=== PATIENT | female | born 1970 ===

== ENCOUNTER 2021-03-29 11:34 | Inpatient (IN) | payer BC ==
[~2021-03-29] VITALS: Ht 172.7 cm; Wt 83.2 kg
[2021-03-29 12:50] LABS: GRAN # 4.9 (1.4-6.5); GRAN % 81.1 % (42.2-75.2); HEMATOCRIT 40.9 % (37.0-47.0); HEMOGLOBIN 13.6 g/dl (12.5-16.0); LYMPH # 0.6 (1.2-3.4); LYMPH % 9.7 % (20.0-51.0); MEAN CELL VOLUME 89 fl (80.0-100.0); MEAN CORPUSCULAR HEMOGLOBIN 30 pg (27.0-31.0); MEAN CORPUSCULAR HGB CONC 33 g/dl (33.0-37.0); MEAN PLATELET VOLUME 12.8 fl (7.4-10.4); MONO # 0.5 (0.1-0.6); MONO % 8.9 % (1.7-9.3); PLATELET COUNT 154 K/mm3 (130-400); RED BLOOD COUNT 4.61 M/mm3 (4.10-5.30); REDCELL DISTRIBUTION WIDTH-CV 13.3 % (11.5-14.5)
[2021-03-29 12:57] LABS: ALBUMIN 4.3 gm/dL (3.5-5.0); BILIRUBIN,TOTAL 0.5 mg/dL (0.0-1.0); CALCIUM 8.6 mg/dL (8.4-10.2); CREATININE, serum 0.43 (0.52-1.25); POTASSIUM 3.4 mmol/L (3.4-5.0); TOTAL PROTEIN 8.2 gm/dL (6.4-8.2)
[2021-03-29 18:38] VITALS: BP 137/64; PULSE 78; TEMP 99.3
[2021-03-29] MEDS ORDERED: ALBUTEROL0.83 MG/ML IH (18:52)
[2021-03-29] MEDS ORDERED: [UNRECOGNIZED DRUG - OTHER] (18:53)
[2021-03-29] MEDS ORDERED: BRIO IH (18:55)
[2021-03-29 19:59] LABS: COLLECTION METHOD CLEAN CATCH
--- NOTE | 2021-03-29 20:00 | NUR ---
Assessment complete. Patient currently on 1.5 liters 02 and satting 95%. She has no complaints of pain. Temp is 99.4. No SOA is present. No edema is noted. Comfort measures are provided and call light in reach. Will continue to closely monitor.
[2021-03-29 20:08] LABS: MUCOUS Present /lpf; PH 5 (5-8); URINE APPEARANCE Cloudy; URINE BACTERIA Rare /hpf; URINE BILIRUBIN Negative (NEGATIVE); URINE BLOOD Negative (NEGATIVE); URINE COLOR Amber; URINE GLUCOSE Negative (NEGATIVE); URINE KETONE Negative (NEGATIVE); URINE LEUKOCYTE ESTERASE 1+ (NEGATIVE); URINE NITRATE Negative (NEGATIVE); URINE PROTEIN(semi-quant) 2+ (NEGATIVE); URINE UROBILINOGEN Negative (NEGATIVE)
[2021-03-29 20:20] LABS: INR 1.1 (0.8-3.0)
[2021-03-29 21:22] VITALS: BP 143/65; PULSE 94; TEMP 99.6
[2021-03-30 01:24] VITALS: BP 145/66; PULSE 89; TEMP 100.3
[2021-03-30 05:39] VITALS: TEMP 99.7
[2021-03-30 06:56] LABS: CALCIUM 8.5 mg/dL (8.4-10.2); CREATININE, serum 0.43 (0.52-1.25); POTASSIUM 3.2 mmol/L (3.4-5.0)
[2021-03-30 06:58] LABS: GRAN % 75.2 % (42.2-75.2); HEMATOCRIT 39.3 % (37.0-47.0); HEMOGLOBIN 12.7 g/dl (12.5-16.0); LYMPH # 0.8 (1.2-3.4); LYMPH % 15.3 % (20.0-51.0); MEAN CELL VOLUME 92 fl (80.0-100.0); MEAN CORPUSCULAR HEMOGLOBIN 30 pg (27.0-31.0); MEAN CORPUSCULAR HGB CONC 32 g/dl (33.0-37.0); MONO # 0.5 (0.1-0.6); MONO % 8.9 % (1.7-9.3); PLATELET COUNT 155 K/mm3 (130-400); RED BLOOD COUNT 4.29 M/mm3 (4.10-5.30); REDCELL DISTRIBUTION WIDTH-CV 13.4 % (11.5-14.5)
[2021-03-30 09:08] VITALS: BP 131/58; PULSE 78; TEMP 99
--- NOTE | 2021-03-30 09:13 | NUR ---
The patient is COVID positive. ANT contacted the patient's room phone to discuss discharge plan. The patient lives in [place] with her , Caesar (ph#[phone]), daughter, son-in-law, and son. She works at [employer]. She reports independence with ADLs and does not have any DME. The patient does not have a PCP here. She states that she moved here around 11 months ago, due to her daughter getting sick and having cancer. ANT informed the patient that ANT would place a list of providers in the [place] area. The patient verbalized understanding. ANT placed the list on the patient's chart. The patient receives her medications from [facility]. The patient does not have advanced directives. The patient plans to return home with her family upon discharge. She is currently on 1 liter of oxygen. SW to continue to monitor. *Discharge plan: home with family*
[2021-03-30 14:08] VITALS: BP 136/61; PULSE 79; TEMP 99.1
[2021-03-30 17:00] VITALS: BP 132/62; PULSE 83; TEMP 98.4
--- NOTE | 2021-03-30 18:31 | NUR ---
PT A/OX4, 02 1L NC, COUGH MEDICATION ADMINISTERED ORDERED, PT APPEARS TO BE FORMING A PRODUCTIVE COUGH, PT DENIES PAIN,N,V,D. PT REMAINS AFEBRILE. ANTBIOTICS AND ANTIVIRAL ADMINISTERED ORDERED. PT EXPRESSES NO ADDITIONAL NEEDS AT THIS TIME. CALL LIGHT WITHIN REACH.
--- NOTE | 2021-03-30 20:00 | NUR ---
Assessment complete. Patient is alert and oriented with no complaints of pain. She is afebrile and wearins 1 liter 02 with no signs of increased work of breathing. She is independent in the room. No edema is noted. Lung sounds are clear with diminished bases; they have improved since last night. HR is normal and regular. No new concerns, will continue to monitor.
[2021-03-30 22:08] VITALS: BP 136/62; PULSE 79; TEMP 99
[2021-03-31] VITALS (7 sets, daily range): BP systolic 131–138; BP diastolic 54–66; PULSE 71–91; TEMP 98.2–101
[2021-03-31 07:08] LABS: BASO % 0.1 % (0.0-2.0); GRAN # 5.9 (1.4-6.5); GRAN % 73.9 % (42.2-75.2); HEMATOCRIT 38.1 % (37.0-47.0); HEMOGLOBIN 12.4 g/dl (12.5-16.0); LYMPH # 1.3 (1.2-3.4); LYMPH % 15.5 % (20.0-51.0); MEAN CELL VOLUME 91 fl (80.0-100.0); MEAN CORPUSCULAR HEMOGLOBIN 30 pg (27.0-31.0); MEAN CORPUSCULAR HGB CONC 33 g/dl (33.0-37.0); MEAN PLATELET VOLUME 12.4 fl (7.4-10.4); MONO # 0.8 (0.1-0.6); PLATELET COUNT 161 K/mm3 (130-400); RED BLOOD COUNT 4.21 M/mm3 (4.10-5.30); REDCELL DISTRIBUTION WIDTH-CV 13.3 % (11.5-14.5)
[2021-03-31 07:14] LABS: CALCIUM 8.5 mg/dL (8.4-10.2); CREATININE, serum 0.45 (0.52-1.25); POTASSIUM 3.4 mmol/L (3.4-5.0)
--- NOTE | 2021-03-31 15:08 | NUR ---
Patient had experienced a fever last night of 101.0. This RN retook the patient's temperature and it was 100.5. The patient was given ordered ibuprofen. Patient's most recent temperature was 98.4. Patient c/o stomach burning that did not go away with eating. This RN gave the patient PRN maalox, as well as some tylenol for other generalized pain. The patient has not had any other complaints at this time.
--- NOTE | 2021-03-31 20:00 | NUR ---
Patient laying in bed talking on the phone, alert and oriented x 3. Assesment complete. Patient denies pain at this time. IV to left forarm without complications. Patient on 2L of oxygen via NC. Denies further needs at this time.
--- NOTE | 2021-03-31 23:23 | NUR ---
Contacted Yue ANDERSON, patient called out to nurses station, states she was sleeping when suddenly she started feeling SOA. Upon entering room patient is sitting up on edge of bed, hyperventalating. Oxygen saturations at 83% on 1L of oxygen, increased to 5l via NC, patient sats at 90%. Patient placed on 10L via oxymask, oxygen sats increased to 95-96%. Crackles noted to bilateral lobes, diminished during shift assessment. Patient complaining of pain during inspiration, fequent coughing with deep inspiration. RT in room for breathing treatment, EKG and ABG. Patient remains sitting on edge of bed, states she feels dizzy. States this also happened to her last night.
[2021-03-31 23:44] LABS: ARTERIAL BLD GAS O2 SATURATION 95.4 % (92-100); ARTERIAL BLD GAS TCO2 CT 35.3; ARTERIAL BLOOD GAS BASE EXCESS 8.6 (-2-2); ARTERIAL BLOOD GAS HCO3 33.8 meq/L (22-26); ARTERIAL BLOOD GAS PCO2 48.9 mmHg (35-45); ARTERIAL BLOOD GAS pH 7.46 (7.35-7.45)
[2021-04-01] VITALS (7 sets, daily range): BP systolic 117–138; BP diastolic 53–74; PULSE 68–79; TEMP 97.9–99.2
--- NOTE | 2021-04-01 | NUR ---
Radiology in for chest xray, patient currently on 8L o2 via oxymask, states she feels better but continues to feel light headed. Tylenol provided for back pain. Denies further needs at this time.
--- NOTE | 2021-04-01 02:28 | NUR ---
Patient laying in bed, states she is feeling a little bit better right now. Denies further needs at this time.
--- NOTE | 2021-04-01 05:47 | NUR ---
Patient sitting up on edge of bed, states she is feeling better but is noticing she is experiencing increased SOA. Currently on 5L of oxygen via NC. Denies pain at this time. Denies further needs at this time. Will report off to day shift.
--- NOTE | 2021-04-01 19:12 | NUR ---
Patient has had complaints of generalized aches. Patient also c/o cough around 1800. Robitussin and tylenol was given. Patient was on 4L of oxygen via Oxymask and was tolerating it well, will a O2 sat of 92%. Patient showered today and did well.
--- NOTE | 2021-04-01 20:00 | NUR ---
Patient in bed resting. Alert and oriented x3. Assessment complete. Denies pain at this time. Patient states she is feeling a lot better this afternoon but is tired. Educated patient on BIpap use at night, verbalized understanding. Patient states she is concerned about her son, who is in ICU at the time. Denies further needs at this time.
--- NOTE | 2021-04-01 22:14 | NUR ---
Yue ANDERSON and SUPPLIER DEVELOPMENT MANAGER in to update patient on son.
--- NOTE | 2021-04-01 23:43 | NUR ---
Contacted Yue ANDERSON for ativan, patient anxious.
[2021-04-02 03:33] VITALS: BP 145/59; PULSE 78; TEMP 98.1
--- NOTE | 2021-04-02 04:10 | NUR ---
Patient called out, states she feels short of breath. O2 at 90% on NC at 4L. Changed patient to oxymask at 5L, O2 saturations at 93% with oxymask. Robitussin given for cough. Denies further needs at this time.
[2021-04-02 05:14] LABS: ARTERIAL BLD GAS TCO2 CT 34.9; ARTERIAL BLOOD GAS BASE EXCESS 8.8 (-2-2); ARTERIAL BLOOD GAS HCO3 33.5 meq/L (22-26); ARTERIAL BLOOD GAS PCO2 46.1 mmHg (35-45); ARTERIAL BLOOD GAS PO2 79.1 mmHg (80-100); ARTERIAL BLOOD GAS pH 7.48 (7.35-7.45)
--- NOTE | 2021-04-02 05:52 | NUR ---
Patient doing well throughout the night. Minimal needs. Currently on 5L o2 via oxymask. Denies pain at this time. Will report off to day shift.
[2021-04-02 08:00] VITALS: BP 114/53; PULSE 88; TEMP 97.8
--- NOTE | 2021-04-02 08:00 | NUR ---
Patient sitting up in bed, RT in the room. Patient emotional in the room and crying. Nursing staff and RT in the room to console the patient. VSS 5L Oxymask, no reported SOB. IV CDI. Denies pain and discomfort. Droplet/contact precautions in place. No further needs expressed from the patient. Call light within reach
[2021-04-02 10:12] LABS: BASO % 0.1 % (0.0-2.0); GRAN # 8.6 (1.4-6.5); GRAN % 78.8 % (42.2-75.2); HEMATOCRIT 40.3 % (37.0-47.0); LYMPH # 1.4 (1.2-3.4); LYMPH % 12.6 % (20.0-51.0); MEAN CELL VOLUME 90 fl (80.0-100.0); MEAN CORPUSCULAR HEMOGLOBIN 29 pg (27.0-31.0); MEAN CORPUSCULAR HGB CONC 32 g/dl (33.0-37.0); MEAN PLATELET VOLUME 11.5 fl (7.4-10.4); MONO # 0.9 (0.1-0.6); PLATELET COUNT 216 K/mm3 (130-400); RED BLOOD COUNT 4.46 M/mm3 (4.10-5.30); REDCELL DISTRIBUTION WIDTH-CV 13.3 % (11.5-14.5)
[2021-04-02 10:26] LABS: ALBUMIN 3.7 gm/dL (3.5-5.0); BILIRUBIN,TOTAL 0.5 mg/dL (0.0-1.0); C-REACTIVE PROTEIN 3.4 mg/dL (0.0-0.9); CALCIUM 8.5 mg/dL (8.4-10.2); CREATININE, serum 0.4 (0.52-1.25); MAGNESIUM 2.4 mg/dL (1.6-2.3); POTASSIUM 3.2 mmol/L (3.4-5.0); TOTAL PROTEIN 7.3 gm/dL (6.4-8.2)
[2021-04-02 11:26] VITALS: BP 133/57; PULSE 84; TEMP 98.6
[2021-04-02 16:00] VITALS: BP 135/71; PULSE 80; TEMP 98.9
--- NOTE | 2021-04-02 17:43 | NUR ---
Patient on 5L oxymask, reported dyspnea on exertion. Patient has been emotional throughout the day r/t son being in the ICU. VSS. IV leaking, assess for new IV site. Denies pain and discomfort. Droplet/contact precautions in place. No further needs expressed from the patient. Call light within reach
[2021-04-02 20:22] VITALS: BP 125/56; PULSE 79; TEMP 98.1
[2021-04-03] VITALS (7 sets, daily range): BP systolic 115–135; BP diastolic 53–71; PULSE 66–75; TEMP 24
--- NOTE | 2021-04-03 06:15 | NUR ---
PATIENT ALERT AND ORIENTEDX4. ON 5 L OXYMASK, INCREASE COUGH ROBITUSSIN X 1 GIVEN. VSS, AFEBRILE. INDEPENDENT IN ROOM. TELEMETRY WAS DISCONTINUED. DENIES PAIN. K 3.2 REPLACED WITH 60 MEQ PO. WILL CONTINUE.
--- NOTE | 2021-04-03 11:00 | NUR ---
Scheduled medications given. Shift assessment preformed. Patient is currently requiring 4L of O2 via oxymask. Denies any N/V/D. Patient afebrile. Patient denies any pain. Denies any further needs at this time. Will continue to monitor. Call light in reach.
--- NOTE | 2021-04-03 11:42 | NUR ---
Dr. Quinones updated on patient's status.
--- NOTE | 2021-04-03 14:02 | NUR ---
PRN TYLENOL GIVEN FOR A HEADACHE RATED A 5/10.
--- NOTE | 2021-04-03 17:41 | NUR ---
Patient has had an ok day. Currently requiring 4L of O2 via oxy mask, still experiencing SOA upon exertion. Scheduled medications given. Patient states that she has some aching in her legs. No reddness or edema noted. VSS. Bed bath given. Patient denies any further needs at this time. Will continue to monitor. Call light in reach.
--- NOTE | 2021-04-03 23:25 | NUR ---
Shift assessment completed. Patient alert and oriented. Patient denies any pain or discomfort. Denies SOB or dyspnea while at rest. Patient currently on 4L oxygen via oxymask. VS stable. No acute respiratory distress noted. Denies N/V or diarrhea. Patient reports feeling very anxious. PRN Ativan given for anxiety. All scheduled meds given per NOV. Call light within reach. Will continue to monitor.
[2021-04-04 06:25] VITALS: BP 129/67; PULSE 73; TEMP 98.3
[2021-04-04 06:42] LABS: HEMATOCRIT 38.7 % (37.0-47.0); HEMOGLOBIN 12.6 g/dl (12.5-16.0); MEAN CELL VOLUME 91 fl (80.0-100.0); MEAN CORPUSCULAR HEMOGLOBIN 30 pg (27.0-31.0); MEAN CORPUSCULAR HGB CONC 33 g/dl (33.0-37.0); MEAN PLATELET VOLUME 11.5 fl (7.4-10.4); PLATELET COUNT 287 K/mm3 (130-400); RED BLOOD COUNT 4.27 M/mm3 (4.10-5.30); REDCELL DISTRIBUTION WIDTH-CV 13.3 % (11.5-14.5)
[2021-04-04 06:51] LABS: CALCIUM 8.7 mg/dL (8.4-10.2); CREATININE, serum 0.46 (0.52-1.25); MAGNESIUM 2.1 mg/dL (1.6-2.3); POTASSIUM 3.8 mmol/L (3.4-5.0)
[2021-04-04 08:22] LABS: BAND 3 % (0-10); LYMPHOCYTE 20 % (20.0-51.0); METAMYELOCYTE 1 % (0-0); NEUTROPHILS 71 % (42.0-75.2); PLATELET ESTIMATE NORMAL (NORMAL)
[2021-04-04 08:23] LABS: HYPOCHROMIA 1+
[2021-04-04 08:46] VITALS: BP 141/57; PULSE 77; TEMP 98.3
--- NOTE | 2021-04-04 09:48 | NUR ---
Scheduled medication given. Shift assessment preformed. Patient c/o right hip pain. States that it is a "pulling pain" rated a 7/10 when moving. PRN tylenol given. Patient denies any N/V/D, patient is afebrile. Patient currently requiring 4 L of O2 via oxymask. Patient denies any further pain, discomfort, or needs at this time. Will continue to monitor. Call light in reach.
[2021-04-04 11:22] VITALS: BP 131/58; PULSE 64; TEMP 98.1
--- NOTE | 2021-04-04 14:00 | NUR ---
ANT contacted the patient to review d/c plan. She remains on 5 liters of oxygen. The patient states that she still plans on returning home with her family upon discharge. The patient states that she works for [employer] and needs her labs and COVID results faxed to Brian, so she does not lose her job. She has the fax number and case number for [facility] and she states that she provided this to her RN yesterday. ANT collaborated with the patient's RN. The fax number and case number were placed on the patient's chart. The patient's RN met with the patient and presented the Disclosure of Protected Health Information to the patient. The patient signed the form. ANT notified and faxed the form to Bob in Medical Records. ANT faxed the patient's labs, along with her positive COVID results to [facility]. ANT updated the patient. Case#[id number]
[2021-04-04 17:39] VITALS: BP 129/61; PULSE 65; TEMP 98
--- NOTE | 2021-04-04 19:37 | NUR ---
Patient has had an ok day. Exercise Oximetery preformed today, patient requires 5-6L of O2 upon exertion. At rest patient requires 5L of O2. Patient denies any pain, discomfort, or futher needs at this time. VSS. Call light in reach.
[2021-04-04 20:15] VITALS: BP 138/63; PULSE 71; TEMP 97.9
--- NOTE | 2021-04-04 22:42 | NUR ---
PT REQUESTS COUGH MEDICATION WELL ANXIETY MEDICATION PT FEELS VERY ANXIOUS CONCERNING HER SON'S HEALTH. MEDICATION ADMINISTERED ORDERED. PT C/O ITCHING AND PAIN TO RIGHT HIP. NURSE WILL CONTINUE TO F/U. CALL LIGHT WITHIN REACH.
[2021-04-05 00:14] VITALS: BP 116/59; PULSE 58; TEMP 98.6
[2021-04-05 04:29] VITALS: BP 134/64; PULSE 66; TEMP 98.8
--- NOTE | 2021-04-05 05:27 | NUR ---
PT 4L HIGH FLOW NC, PT REMAINS AFEBRILE OVER NIGHT, PT DENIES PAIN,N/V/D. PT PRESENTS WITH A PRODUCTIVE COUGH, SPUTUM NOT YET OBSERVED. PT CURRENTLY DENIES ANXIETY. PT EXPRESSES NO ADDITIONAL NEEDS AT THIS TIME. CALL LIGHT WITHIN REACH.
[2021-04-05 08:16] VITALS: BP 132/60; PULSE 64; TEMP 97.9
[2021-04-05 13:29] VITALS: BP 118/62; PULSE 73; TEMP 98.1
[2021-04-05 16:31] VITALS: BP 125/652; PULSE 74; TEMP 98.2
[2021-04-05] MEDS ORDERED: DECADRON6 MG PO (17:12)
--- NOTE | 2021-04-05 18:39 | NUR ---
1815 PT BEING DC AT THIS TIME. NO S/S OF DISTRESS NOTED. DC INSTRUCTIONS REVIEWED AND GIVEN TO PT. PT INSTRUCTION TO ISOLATE FROM OTHERS AND TO NOT HAVE ANYONE THAT IS INFECTED AROUND HER. IV DC. PT WAITING FOR HER SPOUSE TO PICK HER UP AT 1915.
[2021-04-06 07:54] VITALS: BP 148/81; PULSE 86; TEMP 98.1
== END 2021-04-05 18:39 | disposition home or self-care (01) | DRG 177 ==
LOC: COL.ER 11:34 → MEDICAL 16:34
PROVIDERS: Family Medicine; Internal Medicine; Internal Medicine Pulmonary Disease; Student in an Organized Health Care Education/Training Program; ADMIT Student in an Organized Health Care Education/Training Program
PROC: XW033E5 Introduction of Remdesivir Anti-infective into Peripheral Vein, Percutaneous Approach, New Technology Group 5 (ICD-10-PCS; principal; 2021-03-30)
DX: U07.1 COVID-19 (principal); J12.82 Pneumonia due to coronavirus disease 2019; J96.01 Acute respiratory failure with hypoxia; E66.9 Obesity, unspecified; J45.909 Unspecified asthma, uncomplicated; F41.9 Anxiety disorder, unspecified; Z68.37 Body mass index [BMI] 37.0-37.9, adult; E66.01 Morbid (severe) obesity due to excess calories; F17.210 Nicotine dependence, cigarettes, uncomplicated; G47.33 Obstructive sleep apnea (adult) (pediatric); Z68.36 Body mass index [BMI] 36.0-36.9, adult
CPT/HCPCS: 99222-AI; 99232-AI; 99233-AI; 99239; A9284; J0696; J1100; J1650; J2060; J2270; J2405; J2920; J7030; J7050; J8540

== ENCOUNTER → 2022-02-16 | Outpatient (CLI) | payer OTHER ==
[~2022-02-16] MED LIST: ALBUTEROL0.83 MG/ML IH; AMOXICILLIN 50500 MG PO; B COMPLEX & B121 TAB; BREO ELLIPTA 21 EACH IH; BRIO IH; CVS SPECTRAVIT1 EA15 PO; DECADRON6 MG PO; FLEXERIL 1010 MG/TAB PO; IMITREX50 MG PO; JARDIANCE25; MAG-OX 400400 MG/TAB PO; PREDNISONE10 MG PO; ROBAXIN 50500 MG/TAB PO; SINGULAIR 110 MG/TAB PO; THERA-D 20002000 IU PO; ZYRTEC 10MG10 MG PO; [UNRECOGNIZED DRUG - OTHER]
[2022-02-16 12:48] LABS: ALBUMIN 3.6 gm/dL (3.5-5.0); BILIRUBIN,TOTAL 0.4 mg/dL (0.2-1.2); CALCIUM 8.7 mg/dL (8.4-10.2); CREATININE, serum 0.59 mg/dL (0.57-1.11); POTASSIUM 3.7 mmol/L (3.5-4.5); TOTAL PROTEIN 7.2 gm/dL (6.2-8.1)
== END ==
LOC: COL.LAB 11:54
PROVIDERS: Family Medicine
DX: M62.82 Rhabdomyolysis (principal)

== ENCOUNTER 2022-02-17 08:00 | Observation (INO) | payer OTHER ==
[~2022-02-17] VITALS: Ht 172.7 cm; Wt 114.1 kg
[~2022-02-17 08:00] MED LIST changes: -AMOXICILLIN 50500 MG PO; -B COMPLEX & B121 TAB; -BREO ELLIPTA 21 EACH IH; -CVS SPECTRAVIT1 EA15 PO; -FLEXERIL 1010 MG/TAB PO; -IMITREX50 MG PO; -JARDIANCE25; -MAG-OX 400400 MG/TAB PO; -PREDNISONE10 MG PO; -ROBAXIN 50500 MG/TAB PO; -SINGULAIR 110 MG/TAB PO; -THERA-D 20002000 IU PO; -ZYRTEC 10MG10 MG PO
[2022-02-17 08:45] LABS: BASO % 0.1 % (0.0-2.0); EOS # 0.1 K/mm3 (0.0-0.7); EOS % 1.5 % (0.0-4.0); GRAN % 59.1 % (42.2-75.2); HEMATOCRIT 39.3 % (37.0-47.0); HEMOGLOBIN 12.7 g/dl (12.5-16.0); LYMPH # 1.6 K/mm3 (1.2-3.4); LYMPH % 24.4 % (20.0-51.0); MEAN CELL VOLUME 91 fl (80.0-100.0); MEAN CORPUSCULAR HEMOGLOBIN 29 pg (27-31); MEAN CORPUSCULAR HGB CONC 32 g/dl (33.0-37.0); MEAN PLATELET VOLUME 11.6 fl (7.4-10.4); MONO % 14.6 % (1.7-9.3); PLATELET COUNT 200 K/mm3 (130-400); RED BLOOD COUNT 4.32 M/mm3 (4.10-5.30); REDCELL DISTRIBUTION WIDTH-CV 14.2 % (11.5-14.5)
[2022-02-17 08:48] LABS: COLLECTION METHOD CLEAN CATCH
[2022-02-17 08:54] LABS: MUCOUS Present (NOT PRESENT); PH 6 (5-8); URINE APPEARANCE Clear (CLEAR/HAZY); URINE BACTERIA Rare /hpf (NONE SEEN); URINE BILIRUBIN Negative (NEGATIVE); URINE BLOOD Negative (NEGATIVE); URINE COLOR Yellow (YELLOW); URINE GLUCOSE 3+ (NEGATIVE); URINE KETONE Negative (NEGATIVE); URINE LEUKOCYTE ESTERASE Negative (NEGATIVE); URINE NITRATE Negative (NEGATIVE); URINE PROTEIN(semi-quant) Negative (NEGATIVE); URINE RBC 0-2 /hpf (0-2); URINE UROBILINOGEN Negative (NEGATIVE)
[2022-02-17 09:15] LABS: ALBUMIN 3.5 gm/dL (3.5-5.0); BILIRUBIN,TOTAL 0.4 mg/dL (0.2-1.2); C-REACTIVE PROTEIN 2.62 mg/dL (0.00-0.50); CALCIUM 8.6 mg/dL (8.4-10.2); CREATININE, serum 0.59 mg/dL (0.57-1.11); POTASSIUM 4.1 mmol/L (3.5-4.5); TOTAL PROTEIN 7.1 gm/dL (6.2-8.1)
[2022-02-17] MEDS ORDERED: JARDIANCE25 (09:35)
[2022-02-17] MEDS ORDERED: ZYRTEC 10MG10 MG PO (09:36)
[2022-02-17] MEDS ORDERED: MAG-OX 400400 MG/TAB PO (09:37)
[2022-02-17] MEDS ORDERED: ROBAXIN 50500 MG/TAB PO (09:38)
[2022-02-17] MEDS ORDERED: FLEXERIL 1010 MG/TAB PO (09:38)
[2022-02-17] MEDS ORDERED: AMOXICILLIN 50500 MG PO (09:39)
[2022-02-17] MEDS ORDERED: BREO ELLIPTA 21 EACH IH (09:40)
[2022-02-17] MEDS ORDERED: IMITREX50 MG PO (09:40)
[2022-02-17] MEDS ORDERED: SINGULAIR 110 MG/TAB PO (09:41)
[2022-02-17] MEDS ORDERED: B COMPLEX & B121 TAB (09:42)
[2022-02-17] MEDS ORDERED: CVS SPECTRAVIT1 EA15 PO (09:43)
[2022-02-17] MEDS ORDERED: THERA-D 20002000 IU PO (09:44)
[2022-02-17 12:41] VITALS: BP 123/57; PULSE 80; TEMP 98.2
[2022-02-17 16:40] VITALS: BP 146/75; PULSE 79; TEMP 97.6
--- NOTE | 2022-02-17 18:22 | NUR ---
PATIENT ADMITED TO THE UNIT FROM ER with complains of UPPER AND LOWER EXTRIMITY WEAKNESS AND PAIN WITH MOVEMENTS,RATES PAIN AT 7/10,PT ON MOTRIN FOR PAIN PRESCRIBED I.V NORMAL SALINE 1000ML STARTED PER ORDER, PT HAS A PERIPHERAL CANNULAL IN THE LEFT LOWER ARM, AHA, DIET, TELE. VSS,ORIENT AND ALERTX4.
--- NOTE | 2022-02-17 19:02 | NUR ---
PT HAS HAD UNEVENTFUL AFTERNOON SINCE ARRIVAL TO THE MEDICAL FLOOR. PT STATES THAT HER LEGS AND ARMS ARE VERY SORE AND PAINFUL. PT NEEDS GUARDED TOUCH FOR STANDING AND THEN IS ABLE TO MOVE FINE. ADMISSION AND INITIAL ASSESSMENTS COMPLETED. THE PATIENT IS RECEIVING IV FLUIDS RUNNING AT 60ML/HR. NO OTHER CONCERNS AT THIS TIME. REPORT GIVEN TO JOYCE VALENZUELA.
[2022-02-17 19:33] VITALS: BP 145/74; PULSE 77; TEMP 98.6
--- NOTE | 2022-02-17 21:59 | NUR ---
Patient assessed around 193. Alert and oriented x 4, and able to make needs known. Continues to have generalized pain. Given PRN Flexeril. IV fluids continue per orders. Voices no questions, needs, or concerns at this time. In bed with call light within reach.
[2022-02-18 00:17] VITALS: BP 140/62; PULSE 79; TEMP 98.3
[2022-02-18 05:57] VITALS: BP 132/61; PULSE 72; TEMP 98.2
--- NOTE | 2022-02-18 06:06 | NUR ---
Patient reports not sleeping well this shift, but is usually a night owl. Reports pain is still there but getting better. Continues on IV fluids per orders. Voices no questions, needs, or concerns at this time. In bed with call light within reach.
--- NOTE | 2022-02-18 06:30 | NUR ---
THE PATIENT IS AWAKE IN BED AT THIS TIME. DENIES NEEDS. WILL RETURN FOR ASSESSMENT AND MEDICAITONS.
[2022-02-18 07:09] LABS: BASO % 0.1 % (0.0-2.0); GRAN % 88.8 % (42.2-75.2); HEMATOCRIT 40.6 % (37.0-47.0); HEMOGLOBIN 13.2 g/dl (12.5-16.0); LYMPH # 0.9 K/mm3 (1.2-3.4); LYMPH % 8.7 % (20.0-51.0); MEAN CELL VOLUME 90 fl (80.0-100.0); MEAN CORPUSCULAR HEMOGLOBIN 29 pg (27-31); MEAN CORPUSCULAR HGB CONC 33 g/dl (33.0-37.0); MONO # 0.1 K/mm3 (0.1-0.6); MONO % 1.4 % (1.7-9.3); PLATELET COUNT 228 K/mm3 (130-400); RED BLOOD COUNT 4.51 M/mm3 (4.10-5.30)
[2022-02-18 07:22] VITALS: BP 135/58; PULSE 76; TEMP 98
[2022-02-18 07:36] LABS: ALBUMIN 3.5 gm/dL (3.5-5.0); CREATININE, serum 0.59 mg/dL (0.57-1.11); MAGNESIUM 2.4 mg/dL (1.6-2.6); PHOSPHOROUS 3.4 mg/dL (2.3-4.7); POTASSIUM 4.1 mmol/L (3.5-4.5)
[2022-02-18 12:07] VITALS: BP 146/58; PULSE 74; TEMP 98.2
--- NOTE | 2022-02-18 14:45 | NUR ---
Sw met with pt to complete intake. Pt informed Sw that she lives at home with , iTan [phone] and son. Pt reports independent on all ADLs and does use nebulizer, glucometer. Pt reports PCP is Olinda Hilario and gets medications from [facility]. She is also employed there. Pt reports she believes she has Lupus. PT makes recommendations for Home or HH or Outpt PT. Pt reports her PCP has already made a referral for her and declined services from us to make referral for services. DC: Home w/ family assist.
[2022-02-18 16:01] VITALS: BP 151/70; PULSE 78; TEMP 97.7
--- NOTE | 2022-02-18 21:00 | NUR ---
Patient is resting in bed, alert and oriented x 4, hypertensive. Telemetry in place, NSR. Receiving NS 60 ML/HR. Assessment complted, meds provided. No other needs at this time. Call light within reach.
[2022-02-18 21:08] VITALS: BP 143/65; PULSE 72; TEMP 97.7
[2022-02-19 00:10] VITALS: BP 146/63; PULSE 65; TEMP 98
[2022-02-19 04:43] VITALS: BP 115/91; PULSE 94; TEMP 97.6
--- NOTE | 2022-02-19 06:49 | NUR ---
Patient has an uneventful night. Report will be given to day RN.
--- NOTE | 2022-02-19 06:55 | NUR ---
PER REPORT. THE PATIENT HAS A DOSE OF SOLUMEDROL DUE, HOWEVER, THERE IS NONE IN THE PYXIS ON EITHER MEDICAL OR SURGICAL. WILL AWAIT PHARMACY TO LOAD IN THE PYXIS. NO OTHER CONCERNS. AT THIS TIME.
[2022-02-19 07:29] LABS: BASO % 0.1 % (0.0-2.0); GRAN # 14.9 K/mm3 (1.4-6.5); GRAN % 89.4 % (42.2-75.2); HEMATOCRIT 37.3 % (37.0-47.0); HEMOGLOBIN 11.9 g/dl (12.5-16.0); LYMPH % 5.9 % (20.0-51.0); MEAN CELL VOLUME 93 fl (80.0-100.0); MEAN CORPUSCULAR HEMOGLOBIN 30 pg (27-31); MEAN CORPUSCULAR HGB CONC 32 g/dl (33.0-37.0); MEAN PLATELET VOLUME 12.4 fl (7.4-10.4); MONO # 0.6 K/mm3 (0.1-0.6); MONO % 3.8 % (1.7-9.3); PLATELET COUNT 195 K/mm3 (130-400); RED BLOOD COUNT 4.03 M/mm3 (4.10-5.30); REDCELL DISTRIBUTION WIDTH-CV 14.7 % (11.5-14.5)
[2022-02-19 07:43] LABS: ALBUMIN 3.5 gm/dL (3.5-5.0); CALCIUM 8.5 mg/dL (8.4-10.2); CREATININE, serum 0.58 mg/dL (0.57-1.11); MAGNESIUM 2.7 mg/dL (1.6-2.6); PHOSPHOROUS 3.2 mg/dL (2.3-4.7); POTASSIUM 4.2 mmol/L (3.5-4.5)
[2022-02-19 07:50] VITALS: BP 154/68; PULSE 65; TEMP 97.8
[2022-02-19] MEDS ORDERED: PREDNISONE10 MG PO (09:09)
[2022-02-19 12:07] VITALS: BP 148/85; PULSE 71; TEMP 98.1
--- NOTE | 2022-02-19 12:18 | NUR ---
PT IS DISCHARGING TODAY. FORMS REQUESTED WERE FILLED OUT BY THE PHYSICIAN AND ARE FAXED PER PATIENT REQUEST. NO OTHER CONCERNS.
--- NOTE | 2022-02-19 13:28 | NUR ---
REVIEWED PATIENT DISCHARGE INSTRUCTIONS WITH THE PATIENT. SHE WELL FAMILY VERBALIZED UNDERSTANDING OF NEW MEDICATIONS AND THE SIDE EFFECTS. PT FAMILY IS AT BEDSIDE AND ALSO VERBALIZED UNDERSTANDING. APPOINTMENTS REVIEWED. IV REMOVED FROM LFA AND TELEMETRY REMOVED. PT WILL CALL WHEN SHE IS DRESSED AND READY TO BE ESCORTED OUT.
== END 2022-02-19 13:15 | disposition home or self-care (01) ==
LOC: COL.ER 08:00 → MEDICAL 10:01
PROVIDERS: Family Medicine; ADMIT Internal Medicine
DX: R52 Pain, unspecified (principal); M62.82 Rhabdomyolysis; E11.9 Type 2 diabetes mellitus without complications; J45.909 Unspecified asthma, uncomplicated; E66.01 Morbid (severe) obesity due to excess calories; R74.01 Elevation of levels of liver transaminase levels; R74.8 Abnormal levels of other serum enzymes; Z86.16 Personal history of COVID-19; Z79.84 Long term (current) use of oral hypoglycemic drugs; Z87.891 Personal history of nicotine dependence
CPT/HCPCS: 99232-AI; A9270; J2920; J7030

== ENCOUNTER → 2022-02-21 | Outpatient (CLI) | payer OTHER ==
[~2022-02-21] MED LIST changes: +AMOXICILLIN 50500 MG PO; +B COMPLEX & B121 TAB; +BREO ELLIPTA 21 EACH IH; +CVS SPECTRAVIT1 EA15 PO; +FLEXERIL 1010 MG/TAB PO; +IMITREX50 MG PO; +JARDIANCE25; +MAG-OX 400400 MG/TAB PO; +PREDNISONE10 MG PO; +ROBAXIN 50500 MG/TAB PO; +SINGULAIR 110 MG/TAB PO; +THERA-D 20002000 IU PO; +ZYRTEC 10MG10 MG PO
[2022-02-21 09:56] LABS: HEMOGLOBIN 11.9 g/dl (12.5-16.0); MEAN CELL VOLUME 91 fl (80.0-100.0); MEAN CORPUSCULAR HEMOGLOBIN 29 pg (27-31); MEAN CORPUSCULAR HGB CONC 32 g/dl (33.0-37.0); MEAN PLATELET VOLUME 11.3 fl (7.4-10.4); PLATELET COUNT 201 K/mm3 (130-400); RED BLOOD COUNT 4.06 M/mm3 (4.10-5.30); REDCELL DISTRIBUTION WIDTH-CV 14.6 % (11.5-14.5)
[2022-02-21 10:21] LABS: ALBUMIN 3.3 gm/dL (3.5-5.0); BILIRUBIN,TOTAL 0.5 mg/dL (0.2-1.2); CREATININE, serum 0.58 mg/dL (0.57-1.11); POTASSIUM 3.7 mmol/L (3.5-4.5); TOTAL PROTEIN 6.9 gm/dL (6.2-8.1)
[2022-02-21 10:28] LABS: BAND 2 % (0-10); HYPOCHROMIA 1+; LYMPHOCYTE 23 % (20.0-51.0); NEUTROPHILS 69 % (42.0-75.2); PLATELET ESTIMATE NORMAL (NORMAL)
== END | disposition still patient (30) ==
LOC: COL.LAB 03:09
DX: D72.829 Elevated white blood cell count, unspecified (principal); M62.82 Rhabdomyolysis

== ENCOUNTER → 2022-03-14 | Outpatient (CLI) | payer OTHER | LOC: COL.RAD 08:55 | DX: K76.0 Fatty (change of) liver, not elsewhere classified (principal); E11.9 Type 2 diabetes mellitus without complications; Z90.49 Acquired absence of other specified parts of digestive tract ==

== ENCOUNTER → 2022-03-30 | Outpatient (CLI) | payer OTHER | LOC: MC.RAD 09:56 | DX: Z12.31 Encounter for screening mammogram for malignant neoplasm of breast (principal) ==

== ENCOUNTER → 2022-04-09 | Outpatient (CLI) | payer OTHER ==
[~2022-04-09] MED LIST changes: +BACTRIM DS 8001 TAB PO; +CYMBALTA 20MG20 MG PO; +FOSAMAX 70MG TA70 MG PO; +JANUVIA 100MG100 MG PO; +JARDIANCE25 PO; +LANTUS SOLOS100 U/ML SQ
== END ==
LOC: COL.RAD 12:45
DX: K76.0 Fatty (change of) liver, not elsewhere classified (principal); M33.90 Dermatopolymyositis, unspecified, organ involvement unspecified
CPT/HCPCS: Q9967

== ENCOUNTER 2022-04-28 08:00 | Outpatient (RCR) | payer OTHER ==
[2022-04-26 11:30] VITALS: BP 120/68; PULSE 87; TEMP 98.5
[2022-04-27 09:20] VITALS: BP 134/72; PULSE 92; TEMP 98.3
[~2022-04-28] VITALS: Ht 172.7 cm; Wt 109.5 kg
[2022-04-28 08:56] VITALS: BP 145/75; PULSE 71; TEMP 98.4
== END 2022-04-28 10:31 | disposition home or self-care (01) ==
LOC: EUO 08:00
DX: G71.00 Muscular dystrophy, unspecified (principal); R07.89 Other chest pain; E66.01 Morbid (severe) obesity due to excess calories
CPT/HCPCS: J2930; J7040

== ENCOUNTER 2022-05-01 08:16 | Emergency (ER) | payer OTHER ==
[~2022-05-01] VITALS: Ht 172.7 cm; Wt 110.9 kg
[2022-05-01 08:53] VITALS: TEMP 98.1
[2022-05-01 10:04] LABS: HEMATOCRIT 39.7 % (37.0-47.0); HEMOGLOBIN 12.8 g/dl (12.5-16.0); MEAN CELL VOLUME 92 fl (80.0-100.0); MEAN CORPUSCULAR HEMOGLOBIN 30 pg (27-31); MEAN CORPUSCULAR HGB CONC 32 g/dl (33.0-37.0); MEAN PLATELET VOLUME 11.4 fl (7.4-10.4); PLATELET COUNT 188 K/mm3 (130-400); RED BLOOD COUNT 4.33 M/mm3 (4.10-5.30); REDCELL DISTRIBUTION WIDTH-CV 14.8 % (11.5-14.5)
[2022-05-01 10:22] LABS: ALBUMIN 3.4 gm/dL (3.5-5.0); BILIRUBIN,TOTAL 0.8 mg/dL (0.2-1.2); CALCIUM 8.8 mg/dL (8.4-10.2); CREATININE, serum 0.51 mg/dL (0.57-1.11); TOTAL PROTEIN 6.1 gm/dL (6.2-8.1)
[2022-05-01 10:23] LABS: BAND 4 % (0-10); EOSINOPHIL 1 % (0-4); LYMPHOCYTE 14 % (20.0-51.0); METAMYELOCYTE 1 % (0-0); NEUTROPHILS 77 % (42.0-75.2)
[2022-05-01 10:24] LABS: PLATELET ESTIMATE NORMAL (NORMAL)
[2022-05-01 10:28] LABS: POTASSIUM 2.9 mmol/L (3.5-4.5)
[2022-05-01 11:27] VITALS: BP 117/60; PULSE 91
== END 2022-05-01 11:18 | disposition home or self-care (01) ==
LOC: COL.ER 08:16
PROVIDERS: Family Medicine
DX: S00.93XA Contusion of unspecified part of head, initial encounter (principal); M33.10 Other dermatomyositis, organ involvement unspecified; C53.9 Malignant neoplasm of cervix uteri, unspecified; Z87.891 Personal history of nicotine dependence; Z91.040 Latex allergy status; Z86.16 Personal history of COVID-19; W18.39XA Other fall on same level, initial encounter; W22.8XXA Striking against or struck by other objects, initial encounter; Y92.002 Bathroom of unspecified non-institutional (private) residence as the place of occurrence of the external cause
CPT/HCPCS: J7120

== ENCOUNTER 2023-07-03 08:25 | Day surgery (SDC) | payer OTHER ==
[2023-07-03] VITALS (11 sets, daily range): BP systolic 112–160; BP diastolic 66–86; PULSE 71–90; TEMP 98
[~2023-07-03] VITALS: Ht 172.8 cm; Wt 126.9 kg
[~2023-07-03 08:25] MED LIST changes: -CYMBALTA 20MG20 MG PO; +CYMBALTA 60MG60 MG PO; +PREDNISONE20 MG PO
[2023-07-03 09:10] LABS: HEMATOCRIT 38.3 % (37.0-47.0); HEMOGLOBIN 12.8 g/dl (12.5-16.0); MEAN CELL VOLUME 96 fl (80.0-100.0); MEAN CORPUSCULAR HEMOGLOBIN 32 pg (27-31); MEAN CORPUSCULAR HGB CONC 33 g/dl (33.0-37.0); MEAN PLATELET VOLUME 9.8 fl (7.4-10.4); PLATELET COUNT 255 K/mm3 (130-400); RED BLOOD COUNT 4.01 M/mm3 (4.10-5.30); REDCELL DISTRIBUTION WIDTH-CV 14.9 % (11.5-14.5)
[2023-07-03 09:19] LABS: PROTHROMBIN TIME 10.5 SECONDS (9.7-12.8)
[2023-07-03 09:22] LABS: PARTIAL THROMBOPLASTIN TIME 28.9 SECONDS (26.0-37.0)
[2023-07-03 09:28] LABS: CALCIUM 9.9 mg/dL (8.4-10.2); CREATININE, serum 0.68 mg/dL (0.57-1.11); POTASSIUM 4.2 mmol/L (3.5-4.5)
[2023-07-03] MEDS ORDERED: PROAIR HFA0.09 MG/AC IH (09:40)
[2023-07-03] MEDS ORDERED: COREG 3.123.125 MG/T PO (09:41)
[2023-07-03] MEDS ORDERED: CALCIUM 600600 MG PO (09:41)
[2023-07-03] MEDS ORDERED: B-12 500 MCG PO (09:42)
[2023-07-03] MEDS ORDERED: FLEXERIL 1010 MG/TAB PO (09:42)
[2023-07-03] MEDS ORDERED: LASIX 20MG TABL20 MG PO (09:43)
[2023-07-03] MEDS ORDERED: NEURONTIN600 MG/TAB PO (09:44)
[2023-07-03] MEDS ORDERED: NORCO 325 MG-51 TAB PO (09:44)
[2023-07-03] MEDS ORDERED: GAMMAGARD LIQ30 IV (09:46)
[2023-07-03] MEDS ORDERED: ZESTRIL2.5 MG PO (09:47)
[2023-07-03] MEDS ORDERED: MOBIC15 MG PO (09:49)
[2023-07-03] MEDS ORDERED: METHOTREXA2.5 MG/TAB PO (09:50)
[2023-07-03] MEDS ORDERED: COMPLETE MULTI1 TAB PO (09:50)
[2023-07-03] MEDS ORDERED: SEROQUEL XR50 MG PO (09:51)
[2023-07-03] MEDS ORDERED: COMPAZINE 110 MG/TAB PO (09:51)
[2023-07-03] MEDS ORDERED: CRESTOR20 MG PO (09:52)
[2023-07-03] MEDS ORDERED: ALDACTONE 25MG25 M1 PO (09:52)
[2023-07-03] MEDS ORDERED: SEROQUEL 2525 MG/TAB PO (09:52)
[2023-07-03] MEDS ORDERED: TRELEGY ELLIPT1 EACH IH (09:52)
[2023-07-03] MEDS ORDERED: VENOFLASH PO (09:53)
--- NOTE | 2023-07-03 11:34 | NUR ---
See merge for all medication, assessment, intervention, and vital signs. Dr. Jose gave VORB to cancel pre-treatment for contrast allergy. Noted patient received 1 mg Ativan prior to procedure.
--- NOTE | 2023-07-03 15:42 | NUR ---
Dc instructions reviewed with pt and son, both express understanding. Air was removed from TR band in 2 ml increments, with no bleeding or complication. Pt cannot tolerated bandaids, so site dressed with folded 2x2 and coban per her request. She ate meal tray without nasuea. 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 Pt assisted up to restroom, gait steady but slow. IV DC'd, site wrapped with coban. She is assisted to wheelchair, then down to son's car by wheelchair with belongings.
== END 2023-07-03 15:42 | disposition home or self-care (01) ==
LOC: COL.CAR 08:25
PROVIDERS: Internal Medicine Cardiovascular Disease
DX: I42.8 Other cardiomyopathies (principal); E78.2 Mixed hyperlipidemia; I51.9 Heart disease, unspecified; I83.93 Asymptomatic varicose veins of bilateral lower extremities; Z79.899 Other long term (current) drug therapy; Z87.891 Personal history of nicotine dependence; Z77.22 Contact with and (suspected) exposure to environmental tobacco smoke (acute) (chronic)
CPT/HCPCS: J1200; J1644; J2250; J2405; J2930; J3010

== ENCOUNTER 2023-07-09 20:14 | Emergency (ER) | payer OTHER ==
[~2023-07-09] VITALS: Ht 172.7 cm; Wt 127.3 kg
[~2023-07-09 20:14] MED LIST changes: +ALDACTONE 25MG25 M1 PO; +B-12 500 MCG PO; +CALCIUM 600600 MG PO; +COMPAZINE 110 MG/TAB PO; +COMPLETE MULTI1 TAB PO; +COREG 3.123.125 MG/T PO; +CRESTOR20 MG PO; +GAMMAGARD LIQ30 IV; +LASIX 20MG TABL20 MG PO; +METHOTREXA2.5 MG/TAB PO; +MOBIC15 MG PO; +NEURONTIN600 MG/TAB PO; +NORCO 325 MG-51 TAB PO; +PROAIR HFA0.09 MG/AC IH; +SEROQUEL 2525 MG/TAB PO; +SEROQUEL XR50 MG PO; +TRELEGY ELLIPT1 EACH IH; +VENOFLASH PO; +ZESTRIL2.5 MG PO
[2023-07-09 20:21] VITALS: TEMP 98.1
[2023-07-09] MEDS ORDERED: COREG 6.256.25 MG/TA PO (21:00)
[2023-07-09 21:18] VITALS: BP 159/75; PULSE 89
== END 2023-07-09 23:50 | disposition home or self-care (01) ==
LOC: COL.ER 20:14
DX: I10 Essential (primary) hypertension (principal); Z79.899 Other long term (current) drug therapy; Z91.040 Latex allergy status

== ENCOUNTER → 2023-07-25 | Outpatient (CLI) | payer OTHER ==
--- NOTE | 2023-07-03 13:07 | NUR ---
Initial visit; Patient requested visit from Counseling Services Manager. Counseling Services Manager offered comfort, reassurance of her being in good hands at our hospital with superior nurses and a wonderful , and God's blessings. Counseling Services Manager offered prayer and will keep Diamond in her prayers for a rapid and thorough healing.
[~2023-07-25] MED LIST changes: +COREG 6.256.25 MG/TA PO
== END ==
LOC: CANSCHCLI → MC.RAD 14:45
DX: Z12.31 Encounter for screening mammogram for malignant neoplasm of breast (principal)

== ENCOUNTER → 2024-01-23 | Outpatient (CLI) | payer OTHER | LOC: COL.RAD 08:25 | DX: Z12.2 Encounter for screening for malignant neoplasm of respiratory organs (principal); F17.210 Nicotine dependence, cigarettes, uncomplicated ==